=== PATIENT | male | born 1995 | race Caucasian/White ===

== ENCOUNTER 2022-03-17 13:11 | Inpatient (IN) | payer BC ==
[2022-03-17] MEDS ORDERED: Lactated Ringers 1,000 ML IV STA ×3 (13:50→15:26)
[2022-03-17 14:58] LABS: BLOOD UREA NITROGEN,BUN 23 mg/dL (7.0-18.0); CHLORIDE,CL 92 mmol/L (98-107); GLUCOSE RANDOM 492 mg/dL (74-106); POTASSIUM,K 5.5 mmol/L (3.5-5.1); SODIUM,NA 130 mmol/L (136-148)
[2022-03-17 15:18] LABS: ESTIMATED GFR 65 mL/min (>60)
[2022-03-17] MEDS ORDERED: Insulin Regular in 0.9 % NACL 100 ML IV SCH (15:30)
[2022-03-17] MEDS ORDERED: Ondansetron 4 MG/2 ML SDV IVPUSH ONE (15:35)
[2022-03-17 16:05] LABS: HEMOGLOBIN A1C 7.4 %
[2022-03-17 16:45] LABS: CARBON DIOXIDE,CO2 9.5 mmol/L (21.0-32.0); POTASSIUM,K 5.5 mmol/L (3.5-5.1)
[2022-03-18] MEDS ORDERED: Ondansetron 4 MG/2 ML SDV IVPUSH PRN (18:03)
[2022-03-18] MEDS ORDERED: Acetaminophen 325 MG Tab PO PRN (18:03)
[2022-03-18] MEDS ORDERED: Albuterol/Ipratropium 3.0-0.5 MG/3 ML Neb Soln INH PRN (18:04)
[2022-03-18] MEDS ORDERED: Lactated Ringers 1,000 ML IV SCH (18:15)
[2022-03-19] MEDS ORDERED: Pantoprazole 40 MG in Sodium Chloride 0.9% 10 ML IV SCH (07:30)
[2022-03-19] MEDS ORDERED: Enoxaparin 40 MG/0.4 ML Syringe SUBCUT SCH (14:45)
== END 2022-03-18 15:08 | disposition home or self-care (01) | DRG 813 ==
LOC: MW.ED 13:11 → MW.ICU 16:39 → MW.ED 17:20
PROVIDERS: ADMIT Internal Medicine; ATTEND Internal Medicine
PROC: 05HY33Z Insertion of Infusion Device into Upper Vein, Percutaneous Approach (ICD-10-PCS; principal; 2022-03-17)
DX: T85.694A Other mechanical complication of insulin pump, initial encounter (principal); T38.3X1A Poisoning by insulin and oral hypoglycemic [antidiabetic] drugs, accidental (unintentional), initial encounter; E10.10 Type 1 diabetes mellitus with ketoacidosis without coma; N17.9 Acute kidney failure, unspecified; E78.5 Hyperlipidemia, unspecified; Z86.16 Personal history of COVID-19; Z20.822 Contact with and (suspected) exposure to COVID-19
CPT/HCPCS: 36415; 80053; 81003; 82009; 82803; 82947; 83036; 83605; 83735; 84443; 84484; 85025; 85610; J1815; J2405; J7120; U0002

== ENCOUNTER 2023-09-23 11:29 | Inpatient (IN) | payer BC ==
[2023-09-23] MEDS: Sodium Chloride 0.9% 2.5 ML Syringe FLUSH PRN (11:59)
[2023-09-23] MEDS: Ondansetron 4 MG/2 ML SDV IVPUSH ONE (11:59)
[2023-09-23] MEDS: Sodium Chloride 0.9% 1,000 ML IV ONE ×2 (11:59→13:22)
[2023-09-23] MEDS: Sodium Chloride 0.9% 10 ML Syringe FLUSH PRN (11:59)
[2023-09-23 12:21] LABS: BILIRUBIN,URINE NEGATIVE (NEGATIVE); COLOR,URINE YELLOW; GLUCOSE,URINE 500 mg/dL (NEGATIVE); KETONES,URINE >=80 mg/dL (NEGATIVE); LEUKOCYTE ESTERASE,URINE NEGATIVE (NEGATIVE); NITRITE,URINE NEGATIVE (NEGATIVE); OCCULT BLOOD,URINE SMALL (NEGATIVE); PROTEIN,URINE 30 mg/dL (NEGATIVE); UROBILINOGEN,URINE 0.2 EU/dL (<2.0)
[2023-09-23 12:25] LABS: BASE EXCESS VENOUS -18.3 (-2.0-3.0); BASOPHILS ABSOLUTE AUTO 0.07 K/uL (0.00-0.20); BASOPHILS PERCENT AUTO 0.7 % (0.0-1.0); EOSINOPHILS ABSOLUTE AUTO 0.01 K/uL (0.00-0.45); EOSINOPHILS PERCENT AUTO 0.1 % (0.0-6.0); HEMATOCRIT 48.8 % (42.0-52.0); HEMOGLOBIN 17.2 g/dL (14.0-18.0); IMMATURE GRAN ABSOLUTE AUTO 0.05 K/uL (0.00-0.05); IMMATURE GRAN PERCENT AUTO 0.5 % (0.0-0.4); LYMPHOCYTES PERCENT AUTO 7.9 % (24.0-44.0); MEAN CORPUSCULAR HEMOGLOBIN 32.5 pg (28.0-32.0); MEAN CORPUSCULAR HGB CONC 35.2 g/dL (32.0-36.0); MEAN CORPUSCULAR VOLUME 92.2 fL (83.0-99.0); MEAN PLATELET VOLUME 9.1 fL (9.4-12.4); MONOCYTES ABSOLUTE AUTO 0.88 K/uL (0.00-0.80); MONOCYTES PERCENT AUTO 8.6 % (0.0-8.0); NEUTROPHILS ABSOLUTE AUTO 8.38 K/uL (1.80-7.70); NEUTROPHILS PERCENT AUTO 82.2 % (41.0-71.0); PH,VENOUS 7.15 (7.31-7.41); PLATELET COUNT,PLT 273 K/uL (150-400); RED BLOOD CELL COUNT 5.29 M/uL (4.52-5.90); WHITE BLOOD CELL COUNT,WBC 10.19 K/uL (3.9-11.3)
[2023-09-23 12:30] LABS: APPEARANCE,URINE HAZY
[2023-09-23 12:42] LABS: BACTERIA,URINE RARE (NEGATIVE); EPITHELIAL CELLS,URINE NOT SEEN (NONE-FEW); MUCUS,URINE LIGHT (NONE-MOD); RBC,URINE 0-1 (0-2/HPF)
[2023-09-23 13:01] LABS: CORONAVIRUS COVID-19 NAA NEGATIVE (NEGATIVE); INFLUENZA A NAA NEGATIVE (NEGATIVE); INFLUENZA B NAA NEGATIVE (NEGATIVE); RESPIRATORY SYNCYTIAL VIR NAA NEGATIVE (NEGATIVE)
[2023-09-23] MEDS: Acetaminophen 500 MG Tab PO ONE (13:02)
[2023-09-23 13:14] LABS: BILIRUBIN TOTAL 0.7 mg/dL (0.2-1.0); CALCIUM 8.5 mg/dL (8.5-10.1); CARBON DIOXIDE,CO2 8.8 mmol/L (21.0-32.0); CREATININE 1.2 mg/dL (0.8-1.3); EST CRCL DRUG DOSING (CG) 92.94 mL/min; POTASSIUM,K 4.6 mmol/L (3.5-5.1); PROTEIN TOTAL,TP 8.2 g/dL (6.4-8.2)
[2023-09-23] MEDS ORDERED: Insulin Regular in 0.9 % NACL 100 ML IV SCH ×2 (13:45→16:00)
[2023-09-23] MEDS ORDERED: Ondansetron 4 MG/2 ML SDV IVPUSH PRN (14:17)
[2023-09-23] MEDS ORDERED: Acetaminophen 325 MG Tab PO PRN (14:17)
[2023-09-23] MEDS ORDERED: Albuterol/Ipratropium 3.0-0.5 MG/3 ML Neb Soln NEB PRN (14:17)
[2023-09-23] MEDS: Dextrose 5%-0.45% NaCl 1,000 ML IV ONE (14:28)
[2023-09-23 14:30] LABS: POTASSIUM,K 4.6 mmol/L (3.5-5.1)
[2023-09-23 15:12] LABS: CALCIUM 7.9 mg/dL (8.5-10.1); CREATININE 1.1 mg/dL (0.8-1.3); EST CRCL DRUG DOSING (CG) 101.39 mL/min; POTASSIUM,K 4.9 mmol/L (3.5-5.1)
[2023-09-23] MEDS ORDERED: Dextrose 5%-0.45% NaCl 1,000 ML IV SCH (15:30)
[2023-09-23 15:31] LABS: MAGNESIUM 2.2 mg/dL (1.8-2.4); PHOSPHORUS 3.4 mg/dL (2.6-4.7)
[2023-09-23] MEDS: Insulin Regular in 0.9 % NACL 100 ML IV SCH (16:14)
[2023-09-23] MEDS: Losartan 25 MG Tab PO SCH (17:03)
[2023-09-23] MEDS: Enoxaparin 40 MG/0.4 ML Syringe SUBCUT SCH ×2 (17:05→18:39)
[2023-09-23 18:43] LABS: CALCIUM 7.8 mg/dL (8.5-10.1); CARBON DIOXIDE,CO2 13.8 mmol/L (21.0-32.0); CREATININE 1.1 mg/dL (0.8-1.3); EST CRCL DRUG DOSING (CG) 101.39 mL/min; POTASSIUM,K 3.9 mmol/L (3.5-5.1)
[2023-09-23] MEDS: D5 1/2 NS w/ 40 mEq/L KCl 1,000 ML IV SCH (20:45)
[2023-09-23 22:53] LABS: CALCIUM 7.9 mg/dL (8.5-10.1); CREATININE 1.1 mg/dL (0.8-1.3); EST CRCL DRUG DOSING (CG) 101.39 mL/min; POTASSIUM,K 3.6 mmol/L (3.5-5.1)
[2023-09-24 02:45] LABS: CALCIUM 7.7 mg/dL (8.5-10.1); EST CRCL DRUG DOSING (CG) 111.53 mL/min; POTASSIUM,K 4.1 mmol/L (3.5-5.1)
[2023-09-24 06:51] LABS: BASOPHILS ABSOLUTE AUTO 0.04 K/uL (0.00-0.20); BASOPHILS PERCENT AUTO 0.7 % (0.0-1.0); EOSINOPHILS ABSOLUTE AUTO 0.15 K/uL (0.00-0.45); EOSINOPHILS PERCENT AUTO 2.7 % (0.0-6.0); HEMATOCRIT 41.5 % (42.0-52.0); HEMOGLOBIN 14.9 g/dL (14.0-18.0); IMMATURE GRAN ABSOLUTE AUTO 0.01 K/uL (0.00-0.05); IMMATURE GRAN PERCENT AUTO 0.2 % (0.0-0.4); LYMPHOCYTES ABSOLUTE AUTO 1.64 K/uL (1.00-4.80); LYMPHOCYTES PERCENT AUTO 29.7 % (24.0-44.0); MEAN CORPUSCULAR HEMOGLOBIN 31.9 pg (28.0-32.0); MEAN CORPUSCULAR HGB CONC 35.9 g/dL (32.0-36.0); MEAN CORPUSCULAR VOLUME 88.9 fL (83.0-99.0); MEAN PLATELET VOLUME 8.7 fL (9.4-12.4); MONOCYTES ABSOLUTE AUTO 0.69 K/uL (0.00-0.80); MONOCYTES PERCENT AUTO 12.5 % (0.0-8.0); NEUTROPHILS PERCENT AUTO 54.2 % (41.0-71.0); PLATELET COUNT,PLT 217 K/uL (150-400); RED BLOOD CELL COUNT 4.67 M/uL (4.52-5.90); WHITE BLOOD CELL COUNT,WBC 5.53 K/uL (3.9-11.3)
[2023-09-24 07:28] LABS: CALCIUM 7.8 mg/dL (8.5-10.1); CARBON DIOXIDE,CO2 19.7 mmol/L (21.0-32.0); CREATININE 0.9 mg/dL (0.8-1.3); EST CRCL DRUG DOSING (CG) 123.92 mL/min; POTASSIUM,K 4.2 mmol/L (3.5-5.1)
[2023-09-24 08:36] LABS: MAGNESIUM 2.1 mg/dL (1.8-2.4); PHOSPHORUS 2.8 mg/dL (2.6-4.7)
[2023-09-24] MEDS: Insulin Glargine,Hum.Rec.Anlog 100 UNIT/ML 3 ML Pen SUBCUT ONE (08:53)
[2023-09-24] MEDS ORDERED: [UNRECOGNIZED DRUG - OTHER] SUBCUT SCH (09:00)
[2023-09-24 10:49] LABS: CALCIUM 8.4 mg/dL (8.5-10.1); CARBON DIOXIDE,CO2 21.2 mmol/L (21.0-32.0); CREATININE 0.9 mg/dL (0.8-1.3); EST CRCL DRUG DOSING (CG) 123.92 mL/min; POTASSIUM,K 4.4 mmol/L (3.5-5.1)
== END 2023-09-24 13:40 | disposition home or self-care (01) | DRG 813 ==
LOC: MW.ED 11:29 → MW.ICU 14:39
PROVIDERS: ADMIT Family Medicine; ATTEND Family Medicine
DX: T85.694A Other mechanical complication of insulin pump, initial encounter (principal); E10.10 Type 1 diabetes mellitus with ketoacidosis without coma; I10 Essential (primary) hypertension; Z79.4 Long term (current) use of insulin; Z79.899 Other long term (current) drug therapy; Z98.890 Other specified postprocedural states
CPT/HCPCS: 0241U; 36415; 80048; 80053; 81001; 82009; 82803; 82947; 83690; 83735; 84100; 84132; 85025; 96361; 96374; 99222; 99239; 99285-25; 99291; A9270-GY; J1650; J1815; J2405; J3480; J3490; J7030; J7042